=== PATIENT | female | born 1960 | race Caucasian/White ===

== ENCOUNTER 2022-05-15 07:48 | Inpatient (IN) | payer OTHER, SELFPAY ==
[2022-05-07 12:56] VITALS: BMI 26.9
[2022-05-15] VITALS (20 sets, daily range): BP systolic 127–161; BP diastolic 69–107; PULSE 57–92; RESP 11–20; TEMP 35.8–36.8; O2SAT 93–100; BMI 27.5
--- NOTE | 2022-05-15 | DI.RAD.S_ITS ---
PROCEDURE: XR CERVICAL SPINE 2V OR 3V INDICATIONS: C4-5 C5-6 ACDF TECHNIQUE: 2 intraoperative fluoroscopic view(s) of the cervical spine were acquired. COMPARISON: None. FINDINGS: Intraoperative fluoroscopic images shows anterior fusion at C4 through C6 levels. Straightening of normal cervical lordosis is seen. IMPRESSION: Fluoro guidance was provided intraoperatively for anterior fusion at C4-5 and C5-6 levels. Dictated by: Troy Sadler M.D. on 05/15/2022 at 13:09 Approved by: Troy Sadler M.D. on 05/15/2022 at 13:10
[2022-05-15 08:46] LABS: COVID19 -Nasal RAPID Negative (Negative)
[2022-05-15] MEDS: LACTATED RINGERS 1,000 ML 42 ML IV (08:49)
--- NOTE | 2022-05-15 08:55 | PM.PREOP ---
Pre-operative Note COVID-19 COVID-19 status: Negative Result date/Date tested (Pos, Neg/Pending): 05/14/22 Criteria for continued procedure: Expected advancement of disease process, Possibility delay results in more complex future surgery or treatment, Increased loss of function, Continuing or worsening of significant or severe pain, Deterioration of the patient's condition or overall health and Delay expected to result in less-positive ultimate med/surg outcome Interval Note History & Physical reviewed/Exam performed by Physician: Yes Changes to H&P: No
[2022-05-15] MEDS: SCOPOLAMINE 1 PATCH TOP (09:06)
[2022-05-15] MEDS: ACETAMINOPHEN IV 1,000 MG/100 ML VIAL 400 MG IV (09:07)
[2022-05-15] MEDS: CEFAZOLIN 2 GM/100 ML PREMIX 100 ML IV ×2 (09:38→18:02)
--- NOTE | 2022-05-15 10:00 | SUR.OPER ---
Supine, head on gel donut. Arms padded with gel pads, tucked at sides, towel roll under shoulders. Safety belt at thigh. Legs uncrossed.
[2022-05-15] MEDS: BUPIVACAINE 0.5% W/ EPI (PF) 30 ML VIAL INJ (10:15)
--- NOTE | 2022-05-15 11:14 | P.OP_ITS ---
Operative Date/Time/Diagnoses Date of procedure: 05/15/22 Time of procedure: 09:30 Pre-op diagnosis: 1. C4-5, C5-6 spinal stenosis 2. C4-5, C5-6 spondylosis with radiculopathy Post-op diagnosis: same Procedure & Clinicians Procedure: 1. C4-5, C5-6 anterior cervical diskectomy and fusion 2. C4-5, C5-6 anterior interbody cage placement 3. C4-5, C5-6 anterior instrumentation with plate and screw placement in C4, C5-C6 vertebrae 4. Utilization of microsurgical technique and operating microscope Same procedure as scheduled: Yes Indications: Patient has been having chronic neck pain and worsening cervical radiculopathy. Patient failed multiple conservative management with worsening pain weakness and numbness in her upper extremity. Patient has been having difficulty performing activity of daily living. After discussing risks benefits of treatment options, patient elected proceed with surgery. Surgeon: Consuelo Kumari [employer] Faculty Member: Mariel Pereira Click Yes if Unassisted: No Anesthesia Type: General Operative Notes Closure Type: primary Specimen(s): none sent Prosthetic devices, grafts, tissues, transplants, or devices: Globus Extend plate, Hedron C interbody cages Estimated Blood Loss (mL): 5 Blood products transfused: none Procedure in detail: Patient was seen in the preoperative area. Risks and benefits of the surgery was discussed with the patient. Operative consent was obtained and placed in the chart. Patient was then taken to the operative room. Prophylactic antibiotic was given less than 0.5 hr prior to skin incision. General anesthesia was administered. Patient was placed into a supine position on her radiolucent table. Bilateral shoulders were taped down to allow proper C-arm imaging. Anterior cervical area was prepped and draped in a sterile fashion. Time-out was performed at this time. Using lateral C-arm imaging, the level between C4 and C6 was identified and marked on patient's neck. A oblique incision from midline towards medial border of sternocleidomastoid muscle was made. The platysma muscle was incised in line with skin incision. Metzenbaum scissor was used to develop the plane between the medial border of sternocleidomastoid d and the strap muscles medially. The carotid sheath and its contents were identified and protected behind the hand- held retractor during the entire case. The plane between the carotid sheath and strap muscles was developed with Metzenbaum scissors. Dissection was made down to the level of the anterior cervical fascia. Longus colli muscle was incised on the anterior aspect of vertebral bodies bilaterally from C4-6. Spinal needle was placed into the C5-6 disc space and confirmed with lateral C-arm imaging. Using microsurgical technique and operative microscope, anterior cervical diskectomy was performed at C4-5, C5-6 level. This was done by removing the disc material, removing the anterior and posterior osteophytes posterior longitudinal ligaments along with performing bilateral foraminotomies at both levels. Patient was found to have severe central and foraminal stenosis at both levels. Patient's stenosis was fully decompressed after decompression was completed. After the diskectomy was completed, 2 anterior interbody cages were obtained. The cages were packed with DBM bone grafting material. One cage each along with the bone grafting material was then packed into the interbody spaces from C4-C6 with one cage into each interbody level. After the cages were placed, the anterior cervical plate was stabilized to the C4-6 vertebrae using 2 screws at each each level. Total 6 screws were placed. After confirming placement of the hardware with AP and lateral C-arm imaging, the screws were locked into the plate using the locking mechanism and torque limiting screwdriver. After the hardware was placed and confirmed with AP and lateral C-arm imaging, the wound was irrigated with sterile normal saline. The platysma muscle and the subcutaneous tissue was closed with 2-0 Vicryl. The skin was closed with 4-0 Monocryl and Steri-Strips. Patient tolerated the procedure well. Patient was transferred recovery room in stable condition. There were no complications. Complications: none Post-operative Condition: stable Disposition: PACU Plan for aftercare: Admit to inpatient hospital
[2022-05-15] MEDS: ONDANSETRON 4 MG/2 ML INJ IV ×2 (11:30→15:55)
[2022-05-15] MEDS: HYDROMORPHONE 2 MG INJ IV ×2 (11:31→11:49)
[2022-05-15] MEDS: hydrOXYzine 50 MG/ML INJ 25 MG IM (11:32)
--- NOTE | 2022-05-15 11:46 | SUR.PHASEI ---
Received to PACU after general anesthesia. Airway patent, self maintained. Report from PANCHO Calabrese and Dr Mahoney.
--- NOTE | 2022-05-15 11:54 | SUR.PHASEI ---
Pt with nausea. Medicated with zofran on arrival. Con't nauseated. Cold compress to forehead, aromatherapy to chest, ice pack to back of neck. Dr Mahoney updated. Will give ephedrine as ordered.
--- NOTE | 2022-05-15 12:04 | SUR.PHASEI ---
Patient reported feeling scared. Dr. Mahoney notified, lorazepam ordered.
[2022-05-15] MEDS: ePHEDrine 50 MG/ML VIAL 25 MG IM (12:09)
[2022-05-15] MEDS: LORazepam 2 MG/ML INJ 0.25 MG IV (12:18)
--- NOTE | 2022-05-15 12:23 | SUR.PHASEI ---
Patient reported difficulty taking a deep breath. O2 sats upper 90s on 2LNC, lungs clear. Dr. Mahoney notified. No new orders.
--- NOTE | 2022-05-15 12:41 | SUR.PHASEI ---
Report called to Analia Young
[2022-05-15] MEDS: SODIUM CHLORIDE 0.9% 1,000 ML 100 ML IV ×2 (13:56→23:08)
--- NOTE | 2022-05-15 15:16 | SUR.PHASEI ---
Patient transferred to the floor with her belongings bag and jacket. Report given to Kimber. VS stable. IV patent.
[2022-05-15] MEDS: ACETAMINOPHEN 325 MG TABLET 650 MG PO (15:54)
[2022-05-15] MEDS: hydrOXYzine pamoate 25 MG CAPSULE PO ×2 (16:56→21:31)
[2022-05-15] MEDS: OXYCODONE IR 5 MG TABLET PO ×2 (16:56→21:31)
--- NOTE | 2022-05-15 17:45 | OT.IP.EVAL ---
Current Diagnoses Other spondylosis with radiculopathy, cervical region (05/15/22) Spinal stenosis, cervical region (05/15/22) Surgery Performed Operation Date: 05/15/22 09:15 Actual Procedures p C4-5, C5-6 ACDF w/ Anterior instrumentation - Consuelo Kumari MD Past Medical History (Last Updated 05/15/22 @ 08:14 by Irena Henry, RN) Acid reflux Anesthesia complication Anxiety Hives of unknown origin PONV (postoperative nausea and vomiting) Sciatica Spinal stenosis, cervical region Suspected sleep apnea SVT (supraventricular tachycardia) Surgical History (Last Reviewed 05/15/22 @ 07:55 by Irena Henry, RN) History of hysterectomy History of tonsillectomy and adenoidectomy Hx of arthroscopy of right knee Hx of breast augmentation Hx of tubal ligation Occupational Therapy Inpatient Evaluation/Re-Eval M1 PT/OT-IP Prior Functional Status Start: 05/15/22 17:59 Freq: NEEDED Status: Active Protocol: Document 05/15/22 18:02 [facility] (Rec: 05/15/22 18:10 [facility] [id number]) Medical Review Prior Functional Status Medical History Reviewed Yes Diet/Fluid Consistency Regular Communication WNL Mobility and Gait indep Activities of Daily Living and IADL's Indep Social History Household Members spouse,family Living Arrangements House Number of Floors (Floors) Two Floors Number of Stairs To Enter/Railing? 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 (Rec: 05/15/22 18:33 [facility] [id number]) Occupational Therapy Current Condition Current Condition Evaluation Date 05/15/22 Treatment Diagnosis S/p C4-5, C5-6 ACDF Diagnosis Onset Date 05/15/22 Post Operative Precautions Cervical Spine Precautions Soft Collar for Comfort,No Heavy Lifting,Log Roll M3 OT- IP Subjective and Pain Start: 05/15/22 18:21 Freq: Status: Active Protocol: Document 05/15/22 17:21 [facility] (Rec: 05/15/22 18:33 [facility] [id number]) OT- Subjective Occupational Therapy Visit Type Type Initial Evaluation Visit Start Time 17:21 Visit Stop Time 17:45 Total Visit Minutes 24 Occupational Therapy Visit Comments Patient Comments Pt working with PT when OT came to see the pt. Patient/Caregiver Goals TO go home. OT Pain Assessment Pain When Pain Assessed During Mobility Pain Present Pain Present Pain Reported M4 OT- IP ADL's Start: 05/15/22 18:21 Freq: Status: Active Protocol: Document 05/15/22 17:21 [facility] (Rec: 05/15/22 18:33 [facility] [id number]) OT [id number] Comments OT Self-Feeding Comments Educated on information for swallowing and positioning needs- pt able to states good understanding. OT ADL-Grooming Comments OT Grooming Comments not performed OT ADL-Oral Care Comments Oral Care Comments Educated best to spit into a cup or hinge at her hips to spit to best follow her cervical precautions. OT ADL-Dressing General Eval Lower Body Dressing Ability Standby Assistance Comments OT Dressing Comments Pt able to comfortably cross her legs for LB dressing and able to milan/doff the soft collar on her own. Pt having some difficulty with her left arm to hold up in place to help adjust the soft collar. OT ADL-Toileting Comments OT Toileting Comments Not performed, suggested use of pads at night can be helpful. Pt has a bidet at home. OT ADL-Bathing Comments OT Bathing Comments Pt has a built in shower chair . M5 OT- IP IADL's Start: 05/15/22 18:21 Freq: Status: Active Protocol: Document 05/15/22 17:21 [facility] (Rec: 05/15/22 18:33 [facility] [id number]) OT-Instrumental Activities of Daily Living Home Safety Awareness Awareness of Need for Assistance at Home Good Awareness Ability to Problem Solve Emergency Able to Problem Solve Situations Home Safety Comments Pt has a supportive spouse to be home to assist her with all her needs. M6 OT- IP Functional Cognition Start: 05/15/22 18:21 Freq: Status: Active Protocol: Document 05/15/22 17:21 [facility] (Rec: 05/15/22 18:33 [facility] [id number]) Cognitive Factors Limiting Selfcare Function Cognitive Ability Level of Alertness Alert Patient Orientation Name,Place,Situation Attention Span Ability Capable of Focused Attention, Capable of Sustained Attention Ability to Follow Commands Able to Follow Multi-Step Commands Cognitive Comments Cognitive Assessment Comments Pt appears intact for all cognitive needs and able to follow her cervical precautions well. OT- Vision and Hearing OT- Hearing Assessment OT- Hearing Assessment WFL OT- Vision Assessment Visual Acuity WFL M7 OT- IP Mobility and Balance Start: 05/15/22 18:21 Freq: Status: Active Protocol: Document 05/15/22 17:21 [facility] (Rec: 05/15/22 18:33 [facility] [id number]) OT-Transfer Assessment Sit to and From Stand Sit to and from Stand Standby Assistance Transfers Transfer Ability Standby Assistance Technique Transfer Destination Bed,Chair Transfer Technique Stand Step Pivot Devices Transfer Assistive Devices Gait Belt Comments Mobility Comments CLose SBA for transfer with no device. OT- Balance Assessment Sitting Balance and Reactions Static Sitting Balance Ability Normal Dynamic Sitting Balance Ability Normal Standing Balance and Reactions Static Standing Balance Ability Good Dynamic Standing Balance Ability Fair M8 OT- IP Objective Assessments Start: 05/15/22 18:21 Freq: Status: Active Protocol: Document 05/15/22 17:21 [facility] (Rec: 05/15/22 18:33 [facility] [id number]) OT Gross Range of Motion Upper Extremity Range of Motion Assessment Left Impaired OT Strength Upper Extremity Strength Assessment Left Impaired Comments Strength Comments Pt having weakness in left arm 3-/5 at her shoulder. M9 OT- IP Assessment and Plan Start: 05/15/22 18:21 Freq: Status: Active Protocol: Document 05/15/22 17:21 [facility] (Rec: 05/15/22 18:33 [facility] [id number]) OT Summary Assessment and Plan Potential Rehabilitation Potential Excellent Analytic Complexity at Evaluation Low Summary OT Impairments Range of Motion,Strength, Balance,Functional Mobility, Bathing,Activity Tolerance Progress Towards Goals Progressing Toward Goals Assessment Summary Pt low complexity and main barrier are nausea and left UE weakness. Pt able to milan/ doff her collar on her own and move in the room with SBA , Pt has a supportive to assist with her needs. Pt to go home when medically stable. Goals Grooming Goal Independent Dressing Goal Independent Toileting Goal Independent Bathing Goal Standby Assistance Toilet Transfer Goal Independent Shower Transfer Goal Independent Days to Meet Goals 1 Frequency of Treatment Frequency Of Treatment Once a Day Treatment Plan OT Treatment Plan ADL Training,Functional Mobility,Patient/Family Education,Discharge Planning Discharge Recommendations OT Discharge Recommendations Home with Assistance Other Discharge Recommendations Pt may need outpt therapy if LUE continues to be weak. Transportation Needs at Discharge Private Vehicle
--- NOTE | 2022-05-15 18:10 | PT.IIE ---
Current Diagnoses Other spondylosis with radiculopathy, cervical region (05/15/22) Spinal stenosis, cervical region (05/15/22) Surgery Performed Operation Date: 05/15/22 09:15 Actual Procedures p C4-5, C5-6 ACDF w/ Anterior instrumentation - Consuelo Kumari MD Surgical History (Last Reviewed 05/15/22 @ 07:55 by Irena Henry, RN) History of hysterectomy History of tonsillectomy and adenoidectomy Hx of arthroscopy of right knee Hx of breast augmentation Hx of tubal ligation Medical History (Last Updated 05/15/22 @ 08:14 by Irena Henry, RN) Acid reflux Anesthesia complication Anxiety Hives of unknown origin PONV (postoperative nausea and vomiting) Sciatica Spinal stenosis, cervical region Suspected sleep apnea SVT (supraventricular tachycardia) Physical Therapy Inpatient Evaluation/Re-Eval M1 PT/OT-IP Prior Functional Status Start: 05/15/22 17:59 Freq: NEEDED Status: Active Protocol: Document 05/15/22 18:02 [facility] (Rec: 05/15/22 18:10 [facility] [id number]) Medical Review Prior Functional Status Medical History Reviewed Yes Diet/Fluid Consistency Regular Communication WNL Mobility and Gait indep Activities of Daily Living and IADL's Indep Social History Household Members spouse,family Living Arrangements House Number of Floors (Floors) Two Floors Number of Stairs To Enter/Railing? 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; sister is here for the rest of the week to help and is off through next week to help M2 PT-IP Current Condition Start: 05/15/22 17:59 Freq: NEEDED Status: Active Protocol: Document 05/15/22 18:02 [facility] (Rec: 05/15/22 18:10 [facility] [id number]) Physical Therapy Current Condition Current Condition Evaluation Date 05/15/22 M3 PT-IP Subjective Start: 05/15/22 17:59 Freq: NEEDED Status: Active Protocol: Document 05/15/22 18:02 [facility] (Rec: 05/15/22 18:10 [facility] [id number]) Subjective Physical Therapy Visit Type Type Initial Evaluation Visit Start Time 17:00 Visit Stop Time 17:33 Total Visit Minutes 33 Number of ELECTRICAL ENGINEERING TEACHER Visits 0 Therapy Pain Assessment Pain When Pain Assessed During Mobility Pain Present Pain Present Pain Reported Location Neck Pain Management Techniques Re-positioning M4 PT-IP Mobility and Gait Start: 05/15/22 17:59 Freq: NEEDED Status: Active Protocol: Document 05/15/22 18:02 [facility] (Rec: 05/15/22 18:10 [facility] [id number]) PT-Bed Mobility Assessment Rolling Type of Rolling Log Rolling,Roll to Left Level of Assist Standby Assistance Supine to Sit Supine to Sit Standby Assistance,Head of Bed Elevated Scooting Scooting to Edge of Bed Standby Assistance PT-Transfer Assessment Sit to and From Stand Sit to and from Stand Standby Assistance,Use of Upper Extremities Equipment Transfer Assistive Device Gait Belt Orthotic/Prosthetic Devices or Brace: No Transfers Transfer Destination Chair Transfer Technique Stand Step Pivot Transfer Ability Level of Assist Standby Assistance Comments Mobility Comments supine to sit w/HOB elevated to 25 deg (pt sleeps on wedge and notes this is pt's typical height) SBA. SBA scoot to EOB, sit to stand SBA . BP supine 130/80; standing ( pt stood quickly upon log roll ) 118/89; after sitting 140/86 ; sit to stand again and pt stood about 2 min SBA then transfer to chair SBA. Pt left w/call light in reach and OT Gait Assessment Gait Gait Assistance Required: Standby Assistance Distance (Feet) 3 Able to Maintain Weight Bearing Status Yes During Gait Assistive Devices Assistive Device Gait Belt Gait Deviations General Gait Pattern Decreased Stride Length Factors Limiting Gait Function Factors Limiting Gait Function Decreased Activity Tolerance, Decreased Strength,Pain PT-Balance Assessment Sitting Balance and Reactions Static Sitting Balance Ability Normal Dynamic Sitting Balance Ability Normal Standing Balance and Reactions Static Standing Balance Ability Fair Dynamic Standing Balance Ability Fair M5 PT-IP Objective Assessments Start: 05/15/22 17:59 Freq: NEEDED Status: Active Protocol: Document 05/15/22 18:02 [facility] (Rec: 05/15/22 18:10 [facility] [id number]) Orientation Orientation/Cognition Level of Alertness Alert Language Function Ability No Deficits Noted Safety Awareness Understands Safety Issues Memory Description No Deficits Noted Gross Range of Motion Upper Extremity ROM Assessment Left Impaired Impairments Pt noticing LUE weak Lower Extremity ROM Assessment Within Functional Limits Strength Lower Extremity Strength Assessment Within Functional Limits M6 PT-IP Treatment Start: 05/15/22 17:59 Freq: NEEDED Status: Active Protocol: Document 05/15/22 18:02 [facility] (Rec: 05/15/22 18:10 [facility] [id number]) Physical Therapy Treatment Education Education Provided Precautions,Post-Op Packet, Safety M7 PT-IP Assessment and Plan Start: 05/15/22 17:59 Freq: NEEDED Status: Active Protocol: Document 05/15/22 18:02 [facility] (Rec: 05/15/22 18:10 [facility] [id number]) PT Summary Assessment and Plan Potential Rehabilitation Potential Good Status of Condition at Evaluation Evolving Summary Impairments Pain,ROM,Strength,Balance,Bed Mobility,Transfers,Gait, Activity Tolerance Assessment Summary Pt presents day of C4-5 , C5-6 ACDF w/some notable nausea w/ mobility, but pt motivated to mobilize. She did well iwth bed mobility and transfers but limited in mobility d/t nausea so PT did not push pt to do further mobility. She was able to sit in chair after and start trying some dinner. Pt and receptive to all edu. Goals Bed Mobility Goal Independent Transfer Goal Independent Gait Goal Independent Gait Distance 150ft Other Goals up/down flight of stairs w/ rail SBA Days to Meet Goals 4 Frequency of Treatment Frequency Of Treatment Twice a Day Treatment Plan Physical Therapy Treatment Plan Bed Mobility Training,Transfer Training,Gait Training, Therapeutic Exercise,Balance Retraining,Post Op Education, Discharge Planning, Neuromuscular Re-ed Other Recommendations and Next Treatment amb further distance-determine Focus if pt needs AD; go up/down stairs to work on mobility and safety Precautions Cervical Spine Precautions Soft Collar for Comfort,Soft Collar at all Times,Rigid Collar,No Heavy Lifting,Log Roll Weight Bearing Status Weight Bearing Status Full Weight Bearing Recommendations To Nursing Amount of Assist Needed Standby Assistance Discharge Recommendations PT Discharge Recommendations Home with Assistance, Outpatient PT Transportation Needs at Discharge Private Vehicle
[2022-05-15] MEDS: DOCUSATE 100 MG CAPSULE PO (21:31)
[2022-05-15] MEDS: SENNOSIDES 8.6 MG TABLET 17.2 MG PO (21:31)
--- NOTE | 2022-05-15 23:40 | PC.NURSE ---
Patient is alert and oriented. Having some difficulty with swallowing and sore throat related to cervical surgery but no coughing/choking noted. Breath sounds CTA with RA sat of 96%. HRR. Earlier nausea but denies at time of assessment. BT present and abdomen is soft but has not, yet, passed flatus. Is voiding per BSC and denies dysuria. Is able to move herself in bed and up to commode with SBA. Having pain in posterior neck and across bilateral shoulders and has been medicated with vistaril and oxycodone with pain improvement; ice pack also applied. Has weakness in bilateral UE and some decreased ROM in left UE; states there is some minor decreased sensation in left UE vs right UE but has good radial pulses. Dressing to neck is CDI; wearing soft cervical collar. Wearing bilateral calf SCD's. Fall risk score is low. Spouse rooming in.
[2022-05-16] MEDS: OXYCODONE IR 5 MG TABLET PO ×2 (00:20→04:22)
[2022-05-16] MEDS: CEFAZOLIN 2 GM/100 ML PREMIX 100 ML IV (01:56)
[2022-05-16 03:34] VITALS: BP 131/81; PULSE 65; RESP 18; TEMP 36.4; O2SAT 95
[2022-05-16] MEDS: hydrOXYzine pamoate 25 MG CAPSULE PO (04:22)
[2022-05-16] MEDS: HYDROMORPHONE 0.5 MG INJ 0.2 MG IV (07:57)
[2022-05-16] MEDS: MAGNESIUM HYDROXIDE 30 ML UDC PO (08:34)
[2022-05-16] MEDS: DOCUSATE 100 MG CAPSULE PO (08:35)
[2022-05-16] MEDS: LORATADINE 10 MG TABLET PO (08:35)
[2022-05-16] MEDS: buPROPion 100 MG TABLET PO (08:35)
[2022-05-16] MEDS: dilTIAZem CD 120 MG CAP PO (08:35)
--- NOTE | 2022-05-16 09:35 | OT.IP.TRT ---
Current Diagnoses Other spondylosis with radiculopathy, cervical region (05/15/22) Spinal stenosis, cervical region (05/15/22) Surgery Performed Operation Date: 05/15/22 09:15 Actual Procedures p C4-5, C5-6 ACDF w/ Anterior instrumentation - Consuelo Kumari MD Occupational Therapy Treatment Note M2 OT-IP Current Condition Start: 05/15/22 18:21 Freq: Status: Active Protocol: Document 05/15/22 17:21 [facility] (Rec: 05/15/22 18:33 [facility] [id number]) Occupational Therapy Current Condition Current Condition Evaluation Date 05/15/22 Treatment Diagnosis S/p C4-5, C5-6 ACDF Diagnosis Onset Date 05/15/22 Post Operative Precautions Cervical Spine Precautions Soft Collar for Comfort,No Heavy Lifting,Log Roll M3 OT- IP Subjective and Pain Start: 05/15/22 18:21 Freq: Status: Active Protocol: Document 05/16/22 09:35 [facility] (Rec: 05/16/22 11:24 [facility] [id number]) OT- Subjective Occupational Therapy Visit Type Type Treatment Note Visit Start Time 09:35 Visit Stop Time 09:45 Occupational Therapy Visit Comments Patient Comments Pt states having more pain today. Patient/Caregiver Goals TO go home. OT Pain Assessment Pain When Pain Assessed At Rest Pain Present Pain Present Pain Reported M4 OT- IP ADL's Start: 05/15/22 18:21 Freq: Status: Active Protocol: Document 05/16/22 09:35 [facility] (Rec: 05/16/22 11:24 [facility] [id number]) OT [id number] Comments OT Self-Feeding Comments Not at meal time. OT ADL-Grooming Comments OT Grooming Comments not performed OT ADL-Oral Care Comments Oral Care Comments Educated best to spit into a cup or hinge at her hips to spit to best follow her cervical precautions. OT ADL-Dressing Comments OT Dressing Comments Not performed OT ADL-Toileting Comments OT Toileting Comments Not performed. OT ADL-Bathing Comments OT Bathing Comments Pt not wanting to to do at this time. re-educated to shower from neck down, and if washing her hair to have assist and flex at her hips to lean forwards to have assist to wash her hair. M5 OT- IP IADL's Start: 05/15/22 18:21 Freq: Status: Active Protocol: Document 05/15/22 17:21 [facility] (Rec: 05/15/22 18:33 [facility] [id number]) OT-Instrumental Activities of Daily Living Home Safety Awareness Awareness of Need for Assistance at Home Good Awareness Ability to Problem Solve Emergency Able to Problem Solve Situations Home Safety Comments Pt has a supportive spouse to be home to assist her with all her needs. M6 OT- IP Functional Cognition Start: 05/15/22 18:21 Freq: Status: Active Protocol: Document 05/16/22 09:35 [facility] (Rec: 05/16/22 11:24 [facility] [id number]) Cognitive Factors Limiting Selfcare Function Cognitive Comments Cognitive Assessment Comments Intact M7 OT- IP Mobility and Balance Start: 05/15/22 18:21 Freq: Status: Active Protocol: Document 05/15/22 17:21 [facility] (Rec: 05/15/22 18:33 [facility] [id number]) OT-Transfer Assessment Sit to and From Stand Sit to and from Stand Standby Assistance Transfers Transfer Ability Standby Assistance Technique Transfer Destination Bed,Chair Transfer Technique Stand Step Pivot Devices Transfer Assistive Devices Gait Belt Comments Mobility Comments CLose SBA for transfer with no device. OT- Balance Assessment Sitting Balance and Reactions Static Sitting Balance Ability Normal Dynamic Sitting Balance Ability Normal Standing Balance and Reactions Static Standing Balance Ability Good Dynamic Standing Balance Ability Fair M8 OT- IP Objective Assessments Start: 05/15/22 18:21 Freq: Status: Active Protocol: Document 05/15/22 17:21 [facility] (Rec: 05/15/22 18:33 [facility] [id number]) OT Gross Range of Motion Upper Extremity Range of Motion Assessment Left Impaired OT Strength Upper Extremity Strength Assessment Left Impaired Comments Strength Comments Pt having weakness in left arm 3-/5 at her shoulder. M9 OT- IP Assessment and Plan Start: 05/15/22 18:21 Freq: Status: Active Protocol: Document 05/16/22 09:35 [facility] (Rec: 05/16/22 11:24 [facility] [id number]) OT Summary Assessment and Plan Potential Rehabilitation Potential Excellent Analytic Complexity at Evaluation Low Summary OT Impairments Range of Motion,Strength, Balance,Functional Mobility, Bathing,Activity Tolerance Progress Towards Goals Progressing Toward Goals Assessment Summary Pt able to re-adjust her soft collar with good demonstration . LUE still a little weaker but better than yesterday. Abl to finalize Ot needs with pt and her and looking to go home today. Discharge Recommendations OT Discharge Recommendations Home with Assistance Transportation Needs at Discharge Private Vehicle
--- NOTE | 2022-05-16 09:50 | PM.DS.1 ---
History of Present Illness History of Present Illness Date Patient Seen: 05/16/22 Time Patient Seen: 09:50 Chief complaint: Neck pain Narrative: Patient states her neck pain is currently 5/10 after receiving Dilaudid earlier this morning. She denies fever or chills. No difficulty swallowing. Otherwise without complaints. Discharge Providers Provider Date of admission: 05/15/22 07:48 Discharge Date: 05/16/22 Primary care physician: Yas Urbano ND Consults: 05/15/22 13:00 Consult to Occupational Therapy Evaluate & Treat Comment: Physician Instructions: Evaluate and treat Consult to Physical Therapy Evaluate & Treat Comment: Physician Instructions: Evaluate and Treat Discharge provider: Stef Reynaga PA-C Summary Hospital Course Discharge Diagnosis: 1. C4-5, C5-6 spinal stenosis 2. C4-5, C5-6 spondylosis with radiculopathy Hospital Course: 1.? C4-5, C5-6 anterior cervical diskectomy and fusion 2.? C4-5, C5-6 anterior interbody cage placement 3.? C4-5, C5-6 anterior instrumentation with plate and screw placement in C4, C5-C6 vertebrae 4.? Utilization of microsurgical technique and operating microscope Same procedure as scheduled: Yes Indications: Patient has been having chronic neck pain and worsening cervical radiculopathy. Patient failed multiple conservative management with worsening pain weakness and numbness in her upper extremity.? Patient has been having difficulty performing activity of daily living.? After discussing risks benefits of treatment options, patient elected proceed with surgery. Surgeon: Consuelo Kumari Home Comfort Advisor: Mariel Pereira Click Yes if Unassisted: No Anesthesia Type: General Operative Notes Closure Type: primary Specimen(s): none sent Prosthetic devices, grafts, tissues, transplants, or devices: Globus Extend plate, Hedron C interbody cages Estimated Blood Loss (mL): 5 Patient admitted to the hospital for the above-mentioned procedure. Patient consented to the same. Patient underwent surgery on May 15, 2022. Patient has assistance at home. Patient progressing as expected. Patient to be discharged home today in stable condition. Status at Discharge Cognitive/behavioral status at discharge: at baseline, oriented Overall status at discharge: patient is progressing back to baseline Exam Vital Signs (past 8 hours): - 05/16/22 03:34 Temperature 97.6 F Pulse Rate 65 Respiratory Rate 18 Blood Pressure 131/81 Pulse Oximetry 95 Oxygen Flow Rate 0 Oxygen Delivery Method Room Air Oxygen Flow Rate 0 Narrative Exam Narrative: 61-year-old female resting comfortably in bed in no apparent distress. Soft collar in place. Dressing is clean, dry and intact. 5/5 strength bilateral upper extremities. Sensation grossly intact to light touch bilateral upper extremities. Const General: cooperative and comfortable Nutritional Appearance: average body habitus Orientation: alert Resp Effort & Inspection: normal respiratory effort and able to speak in complete sentences PFSH Medical History Acid reflux Anesthesia complication Anxiety Hives of unknown origin PONV (postoperative nausea and vomiting) Sciatica Spinal stenosis, cervical region Suspected sleep apnea SVT (supraventricular tachycardia) Surgical History History of hysterectomy History of tonsillectomy and adenoidectomy Hx of arthroscopy of right knee Hx of breast augmentation Hx of tubal ligation Social History household members: spouse and family Smoking Status: Former smoker alcohol intake: current Discharge Assessment & Plan Assessment and Plan Assessment: Patient progressing as expected status post C4-C5, C5-C6 anterior cervical diskectomy and fusion Plan of Treatment: Soft collar for comfort Multimodal pain management Limit bending, twisting, lifting Discharge home today in stable condition. Discharge Plan Discharge Plan Patient Disposition: Home Discharge orders & Medications Prescriptions: New acetaminophen 325 mg Tablet 650 mg PO Q6HR PRN (Reason: Pain, Mild (1-3)) Qty: 60 0RF docusate sodium 100 mg Capsule 100 mg PO BID Qty: 10 0RF oxycodone 5 mg Tablet 5 mg PO Q3HR PRN (Reason: Pain, Moderate (4-6)) Qty: 60 0RF hydroxyzine pamoate 25 mg Capsule 25 mg PO Q4HR PRN (Reason: Nausea And Vomiting) Qty: 30 0RF hydromorphone [Dilaudid] 2 mg tablet 2 mg PO Q6H PRN (Reason: pain (scale score 7-10)) Qty: 20 0RF Rx Instructions: May take Dilaudid q.6 hours as needed for breakthrough pain Continued cetirizine [Zyrtec] 10 mg Tablet 10 mg PO DAILY bupropion HCl 100 mg Tablet 100 mg PO QAM diltiazem HCl 120 mg Capsule,Extended Release 24hr 120 mg PO QAM omeprazole 20 mg Tablet,Delayed Release (Dr/Ec) 20 mg PO DAILY PRN (Reason: GI upset) Discontinued acetaminophen 500 mg Tablet 1,000 mg PO Q6H PRN (Reason: Pain) meloxicam 7.5 mg Tablet 7.5 mg PO DAILY Follow up/Referrals: Consuelo Kumari MD [Physician] - As previously scheduled (Follow up w/ Dr Kumari on 05/28/2022 @ 2:20 pm at [facility] office in [place].) Yas Urbano ND [Primary Care Provider] - Diet/Activity/Treatments Diet: Diet as Tolerated Diet comment: Stick to soft, moist foods for the first few days after surgery. Activity: Soft cervical collar for comfort; recommend wearing while active and while sitting for long periods of time. May have off to eat and shower. Some people do feel more secure sleeping with the collar on, but this is not necessary. Cold/Heat Therapy: Heating pad to back of neck/shoulders as needed for pain. Skin/Wound/Dressing Care Report to your healthcare provider any signs of infection, such as:: chills, fever, night sweats, unusual drainage and unusual redness Dressing: May shower; keep dressing as dry as possible. If dressing becomes wet inside, may remove. Leave steri strips in place until follow up in office. Visit Report/Discharge Packet Instructions: DI for Prescription Opioid Use, DI for Anterior Cervical Discectomy and Fusion Stand Alone Forms: Patient Portal/API, Stroke Signs & Symptoms, Surgery Discharge Discharge Data Primary Care Provider: Yas Urbano Quality VTE Deep Vein Thrombosis/Pulmonary Embolism Present on Admission: No
[2022-05-16] MEDS: ONDANSETRON 4 MG/2 ML INJ IV (10:43)
[2022-05-16 10:44] VITALS: BP 139/81; PULSE 64; RESP 18; TEMP 36.7; O2SAT 96
[2022-05-16] MEDS: ACETAMINOPHEN 325 MG TABLET 650 MG PO (11:42)
--- NOTE | 2022-05-16 12:45 | PT.IPTN ---
Current Diagnoses Other spondylosis with radiculopathy, cervical region (05/15/22) Spinal stenosis, cervical region (05/15/22) Surgery Performed Operation Date: 05/15/22 09:15 Actual Procedures p C4-5, C5-6 ACDF w/ Anterior instrumentation - Consuelo Kumari MD Physical Therapy Treatment Note M2 PT-IP Current Condition Start: 05/15/22 17:59 Freq: NEEDED Status: Active Protocol: Document 05/16/22 12:34 [facility] (Rec: 05/16/22 13:39 [facility] [id number]) Physical Therapy Current Condition Current Condition Evaluation Date 05/15/22 M3 PT-IP Subjective Start: 05/15/22 17:59 Freq: NEEDED Status: Active Protocol: Document 05/16/22 12:34 [facility] (Rec: 05/16/22 13:39 [facility] [id number]) Subjective Physical Therapy Visit Type Type Treatment Note Visit Start Time 12:34 Visit Stop Time 12:45 Total Visit Minutes 11 Notes Spouse in room able provided SBA/CGA assist required during CGT. Vitals: Seated EOB: BP 163/85 HR 68 SaO2 979% on RA Number of SIDE LASTER STAPLE Visits 1 Physical Therapy Visit Comments Patient Comments Pt nausea and in pain initially when arrived mid am, when returned willing to mobilize. Patient Goals Return home with to assist her. Therapy Pain Assessment Pain When Pain Assessed During Mobility Pain Present Pain Present Denied Pain Location Neck Pain Management Techniques Timing of Activity with Medications M4 PT-IP Mobility and Gait Start: 05/15/22 17:59 Freq: NEEDED Status: Active Protocol: Document 05/16/22 12:34 [facility] (Rec: 05/16/22 13:45 [facility] [id number]) PT-Bed Mobility Assessment Rolling Type of Rolling Log Rolling,Roll to Left Level of Assist Standby Assistance Supine to Sit Supine to Sit Standby Assistance,Head of Bed Elevated Scooting Scooting to Edge of Bed Standby Assistance PT-Transfer Assessment Sit to and From Stand Sit to and from Stand Standby Assistance,Contact Guard Assistance,Use of Upper Extremities Equipment Transfer Assistive Device Gait Belt Orthotic/Prosthetic Devices or Brace: No Transfers Transfer Destination Chair Transfer Technique pt ambulate with no AD Transfer Ability Level of Assist Standby Assistance,Contact Guard Assistance Comments Mobility Comments Pt completed supine to sit w/ HOB elevated to 25 deg (pt sleeps on wedge and notes this is pt's typical height) SBA. SBA for all other mobility CG/ SBA via w/gait belt donned. Noted trunk wt shift between BLEs but no LOB during room distance gait. Pt and declined don't need to assess stairs. SIDE LASTER STAPLE provided safety benefits assessment. Pt returned to chair sBA with good safety hand placement slow descent sit. Pt had call light and all needs in reach, in room. Gait Assessment Gait Gait Assistance Required: Standby Assistance,Contact Guard Assist Distance (Feet) 30 Able to Maintain Weight Bearing Status Yes During Gait Assistive Devices Assistive Device None,Gait Belt Orthotic/Prosthetic Devices or Brace: No Gait Deviations General Gait Pattern Antalgic,Decreased Stride Length Factors Limiting Gait Function Factors Limiting Gait Function Decreased Activity Tolerance, Decreased Strength,Pain Comments Gait Comments see mobility comments Stair Climbing Assessment Comments Stair Climbing Comments Pt/ declined not need to assess. PT-Balance Assessment Sitting Balance and Reactions Static Sitting Balance Ability Normal Dynamic Sitting Balance Ability Normal Standing Balance and Reactions Static Standing Balance Ability Good Dynamic Standing Balance Ability Fair M5 PT-IP Objective Assessments Start: 05/15/22 17:59 Freq: NEEDED Status: Active Protocol: Document 05/15/22 18:02 [facility] (Rec: 05/15/22 18:10 [facility] [id number]) Orientation Orientation/Cognition Level of Alertness Alert Language Function Ability No Deficits Noted Safety Awareness Understands Safety Issues Memory Description No Deficits Noted Gross Range of Motion Upper Extremity ROM Assessment Left Impaired Impairments Pt noticing LUE weak Lower Extremity ROM Assessment Within Functional Limits Strength Lower Extremity Strength Assessment Within Functional Limits M6 PT-IP Treatment Start: 05/15/22 17:59 Freq: NEEDED Status: Active Protocol: Document 05/15/22 18:02 [facility] (Rec: 05/15/22 18:10 [facility] [id number]) Physical Therapy Treatment Education Education Provided Precautions,Post-Op Packet, Safety M7 PT-IP Assessment and Plan Start: 05/15/22 17:59 Freq: NEEDED Status: Active Protocol: Document 05/16/22 12:34 [facility] (Rec: 05/16/22 13:39 [facility] [id number]) PT Summary Assessment and Plan Potential Rehabilitation Potential Good Status of Condition at Evaluation Evolving Summary Impairments Pain,ROM,Strength,Balance,Bed Mobility,Transfers,Gait, Activity Tolerance Progress Towards Goals Progressing Toward Goals,Slow Progress due to Pain,Slow Progress due to Activity Tolerance Assessment Summary Pt had soft collar donned, able to complete bed mobiltiy SBA, Donned gait belt, transfers and gait CGA via , gait around room approx 30 ft within room, declined need to assess stairs , little trunk wt shifting between LE advancement no LOB around room. Pt is ok to return home with and sister to assist her 14/10 available when medically cleared. Discussed any further questions, refer to surgeon. Goals Bed Mobility Goal Independent Transfer Goal Independent Gait Goal Independent Gait Distance 150ft Other Goals up/down flight of stairs w/ rail SBA Days to Meet Goals 4 Frequency of Treatment Frequency Of Treatment Twice a Day Treatment Plan Physical Therapy Treatment Plan Bed Mobility Training,Transfer Training,Gait Training, Therapeutic Exercise,Balance Retraining,Post Op Education, Discharge Planning, Neuromuscular Re-ed Other Recommendations and Next Treatment gait further distance no AD, Focus balance activities Precautions Cervical Spine Precautions Soft Collar for Comfort,Soft Collar at all Times,Rigid Collar,No Heavy Lifting,Log Roll Weight Bearing Status Weight Bearing Status Full Weight Bearing Recommendations To Nursing Amount of Assist Needed Standby Assistance Discharge Recommendations PT Discharge Recommendations Home with Assistance, Outpatient PT Transportation Needs at Discharge Private Vehicle
== END 2022-05-16 13:45 | disposition home or self-care (01) | DRG 472 ==
PROVIDERS: Admitting Provider Orthopaedic Surgery Orthopaedic Surgery of the Spine; PCP Acupuncturist; Referring Provider Orthopaedic Surgery Orthopaedic Surgery of the Spine; Visit Provider Orthopaedic Surgery Orthopaedic Surgery of the Spine
PROC: 0RG20A0 Fusion of 2 or more Cervical Vertebral Joints with Interbody Fusion Device, Anterior Approach, Anterior Column, Open Approach (ICD-10-PCS; principal; 2022-05-15 09:15)
DX: M48.02 Spinal stenosis, cervical region (principal); I47.1 Supraventricular tachycardia; M47.22 Other spondylosis with radiculopathy, cervical region; K21.9 Gastro-esophageal reflux disease without esophagitis; Z20.822 Contact with and (suspected) exposure to COVID-19; Z87.891 Personal history of nicotine dependence
CPT/HCPCS: 72040; 76000; 82962; 87635; 97162; 97165; 97530; 97535; C9803; C1713; J0131; J0690; J1100; J1170; J2060; J2250; J2405; J2704; J3010; J3410